=== PATIENT | female | born 1950 | race African-American/Black ===

== ENCOUNTER → 2016-09-10 | Outpatient (CLI) | payer OTHER ==
--- NOTE | ~2016-09-10 | CR63 ---
[facility] A Service of [facility] / [facility] RADIOLOGY TEXT RESULTS PATIENT: KAYLEIGH GOMEZ LOCATION: [facility] : 48 UNIT #: [id number] AGE: [address]: WAQAS BAUMAN APRN SEX: F ORDER DR: [id number] [facility] [address] [place], [place] [address] [id number] O MR#: [id number] Acc #: [id number] NAME: KAYLEIGH GOMEZ : 1950 SEX: F STUDY DATE/TIME: 09/10/2016 17:20 UNIT: [facility] ROOM: STUDY DESCRIPTION: CR Chest 2 View Attending Physician: Waqas Bauman Referring Physician: Waqas Bauman Ordering Physician: Waqas Bauman Aprn Primary Care Physician: Waqas Bauman MEDICAL IMAGING REPORT This report is preliminary unless electronic signature is present EXAM PA and lateral chest 09/10/2016 COMPARISON 11/11/2012 HISTORY SUPPLIED Cough, wheezing, bronchitis, lethargy, shortness of breath for 2-3 months. FINDINGS PA and lateral views of the chest are obtained. Heart size is normal. Lungs are markedly emphysematous. No acute infiltrates are identified. I suspect bronchiectasis in both bases. CONCLUSION Emphysematous lung disease with basilar bronchiectasis. No acute process identified. Dictated by... Daniel Menchaca M.D. THIS IS AN ELECTRONICALLY VERIFIED REPORT Daniel Menchaca M.D. at 09/11/2016 7:28 AM LIDA/silvana TD: 09/10/2016 23:20 JOB #: [id number] MEDICAL IMAGING REPORT Page 1 of 1 COPY
== END | disposition home or self-care (01) ==
LOC: CRAD 16:16
DX: J40 Bronchitis, not specified as acute or chronic (principal); J43.9 Emphysema, unspecified; J47.9 Bronchiectasis, uncomplicated
CPT/HCPCS: 71020